=== PATIENT | female | born 1965 | race African-American/Black ===

== ENCOUNTER 2019-03-28 16:18 | Emergency (ER) | payer SELFPAY ==
[~2019-03-28] VITALS: Ht 162.6 cm; Wt 90.0 kg
[2019-03-28 21:02] VITALS: BP 155/81
== END 2019-03-28 21:04 | disposition home or self-care (01) ==
LOC: ER 16:18
DX: M25.521 Pain in right elbow (principal); I10 Essential (primary) hypertension; J45.909 Unspecified asthma, uncomplicated
CPT/HCPCS: 99281